=== PATIENT | male | born 1955 | race Caucasian/White ===

== ENCOUNTER → 2024-03-13 10:17 | Outpatient (REF) | payer OTHER, SELFPAY | LOC: RCS 10:17 | PROVIDERS: ATTENDING PHYSICIAN Internal Medicine Cardiovascular Disease; FAMILY PHYSICIAN Family Medicine | DX: I48.0 Paroxysmal atrial fibrillation (principal); I44.1 Atrioventricular block, second degree; Q23.1 Congenital insufficiency of aortic valve | CPT/HCPCS: 93306 ==

== ENCOUNTER → 2024-03-16 10:06 | Outpatient (REF) | payer OTHER, SELFPAY | LOC: RAD 10:06 | PROVIDERS: ATTENDING PHYSICIAN Internal Medicine Cardiovascular Disease | DX: E78.00 Pure hypercholesterolemia, unspecified (principal) | CPT/HCPCS: 75571 ==

== ENCOUNTER → 2024-05-08 07:26 | Outpatient (REF) | payer OTHER, SELFPAY ==
[2024-05-08] MEDS: LEXISCAN 0.4 MG IV (09:22)
[2024-05-08] MEDS: FLUSH (NSS) 1 FLUSH IV (09:23)
== END ==
LOC: RCS 07:26
PROVIDERS: ATTENDING PHYSICIAN Internal Medicine Cardiovascular Disease; FAMILY PHYSICIAN Family Medicine
DX: I10 Essential (primary) hypertension (principal); I47.29 Other ventricular tachycardia
CPT/HCPCS: 78452; 93017; A9500; J2785